=== PATIENT | male | born 1955 | race Caucasian/White ===

== ENCOUNTER 2020-01-27 13:43 | Emergency (ER) | payer SELFPAY ==
[~2020-01-27] VITALS: Ht 172.7 cm; Wt 52.5 kg
--- NOTE | 2020-01-27 14:32 | RAD ---
XR CHEST 1V 01/27/2020 2:26 PM INDICATION: Stage IV lung cancer with right-sided Pleurx catheter COMPARISON: None available TECHNIQUE: Portable frontal view of the chest is provided. Findings/ impression: The cardiomediastinal silhouette is within normal limits. There is volume loss in the right lung. Mul tifocal parenchymal opacities in the right lung may represent either primary or metastatic malignancy . There are no significant pleural effusions. There is no pulmonary vascular congestion. No pneumothora x. No suspicious osseous abnormality. Electronically signed by: Radha Murphy MD (01/27/2020 2:29 PM) [id number]
--- NOTE | 2020-01-27 14:50 | PHYS DOC ---
Past History Past Medical History: Cancer, COPD, Hypertension, Other Additional Past Medical Histor: PLEURAL EFFUSION Past Surgical History: Other Additional Past Surgical Histo: TUBE FOR PLEURAL EFFUSION Alcohol Use: None Adult General Chief Complaint Chief Complaint: OTHER COMPLAINTS HPI HPI Patient is a 64-year-old male who presents for right sided chest tube problems. Patient has known history of stage IV lung cancer. Recently relocated from [place] to our area to live with friend/family member that can assist him with his activities of daily living. He has significant history for cancer with mets, has had progressive decline in ability to perform activities of daily living. He subsequently has an unknown type of lung cancer on the right side, has Pleurx catheter in place and had home health services come to his home in [place] weekly to drain said catheter. Nonetheless, since moving here approximately 3 weeks ago he has not had this service set up. He is here today for drainage of his catheter. Of note, patient attempted to establish with [facility] oncology group; however, he was unable to perform MRI and other studies requested due to not having his insurance set up. Today he complains of no fever, no acute complaints Review of Systems Review of Systems Fourteen body systems of review of systems have been reviewed. See HPI for pertinent positives and negative responses, other renae all other systems are negative, non-pertinent or non-contributory Physical Exam Physical Exam Constitutional: Pt is oriented to person, place, and time. Pt appears malnourished and cachectic appearing HEENT: Head: Normocephalic and atraumatic. External ears unremarkable Conjunctivae and EOM are normal. Pupils are equal, round, and reactive to light. Oropharynx is clear and moist. No hematomas or lacerations or abrasions to face or scalp OP clear, no blood, no malocclusion, dentition intact Nares clear, no nasal septal hematoma Midface stable Neck: C-spine midline nontender, no step-offs Cardiovascular: Normal rate, regular rhythm and normal heart sounds. Pulmonary/Chest: Decreased breath sounds to right lung base, Pleurx catheter in place at right chest wall without any obvious signs of superficial infection, no respiratory distress. No wheezes. Abdominal: Soft. Bowel sounds are normal. Pt exhibits no distension. There is no tenderness. Musculoskeletal: No bony tenderness to extremities, no deformities, full ROM extremities Chest wall stable Pelvis stable and non-tender No vertebral TTP and spine without stepoffs Neurological: Pt is alert and oriented to person, place, and time. Moving all extremities willfully, able to wiggle all fingers and toes Alert and oriented x 3 Sensation grossly intact Muscle strength 4/5 in all extremities which is at baseline for patient Skin: Skin is warm and dry. No abrasions, no lacerations. Numerous lacerations and ecchymosis from bruising per patient on upper bodies from prior falls and recent laboratory sticks Psychiatric: Depressed mood Current Patient Data Vital Signs Vital Signs Date Time Temp Pulse Resp B/P (MAP) Pulse Ox O2 Delivery O2 Flow Rate FiO2 01/27/20 14:25 98 20 125/56 (79) 95 Room Air 01/27/20 13:56 98.1 EKG EKG [] Radiology/Procedures Radiology/Procedures XR CHEST 1V 01/27/2020 2:26 PM INDICATION: Stage IV lung cancer with right-sided Pleurx catheter COMPARISON: None available TECHNIQUE: Portable frontal view of the chest is provided. Findings/ impression: The cardiomediastinal silhouette is within normal limits. There is volume loss in the right lung. Multifocal parenchymal opacities in the right lung may represent either primary or metastatic malignancy. There are no significant pleural effusions. There is no pulmonary vascular congestion. No pneumothorax. No suspicious osseous abnormality. Electronically signed by: Radha Murphy MD (01/27/2020 2:29 PM) [id number] Heart Score HEART Score for Chest Pain: HEART Score for Chest Pain Response (Comments) Value History Slighlty/Non-Suspicious 0 Age > 65 2 Risk Factors >3 Risk Factors or Hx CAD 2 Total 4 Risk Factors: Risk Factors: DM, Current or recent (<one month) smoker, HTN, HLP, family history of CAD, obesity. Risk Scores: Risk Factors: DM, Current or recent (<one month) smoker, HTN, HLP, family history of CAD, obesity. Course & Med Decision Making Course & Med Decision Making Pertinent Labs and Imaging studies reviewed. (See chart for details) Discussed with patient and family member present no acute findings today. No clinical indication for attaching Pleurx catheter to suction today Patient getting reincorporated into local health system. Patient has good access to primary care physician and still getting set up with local oncology group I offered patient admission but he declined, states he has good support at home and care from caregiver who accompanies him today Discussed with the patient all findings and diagnostic testing as well as the need to follow up with PCP for further evaluation and treatment or return to the ED if any new or worsening symptoms. Strict return precautions were also discussed at length with good understanding by patient. Patient voiced understanding and agreement with the plan. Hemodynamically stable at time of disposition. Dragon Disclaimer Dragon Disclaimer This electronic medical record was generated, in whole or in part, using a voice recognition dictation system. Departure Departure: Impression: Primary Impression: Stage 4 malignant neoplasm of lung Disposition: DC HOME SELF CARE/HOMELESS Condition: STABLE Referrals: JAZMÍN ESCOBAR (PCP) Additional Instructions: You were seen in the Emergency Department for evaluation of your Pleurx drain. Your chest x-ray was negative for any acute cardiac/pulmonary etiology requiring immediate intervention. As discussed, I reviewed your case with on-call radiologist and catheter was in correct position, no significant fluid buildup, no need for any intervention at this time. With that said, I did disclose there is obvious findings of known lung cancer and right lower lobe. It is imperative that you follow-up with your primary doctor in addition to oncologist for further evaluation and management. Coughing up blood, fever, and shortness of breath are examples of reasons to come back to the emergency department. Please return to the ED if you have new or worrisome symptoms. CLARISA FREEMAN DO Jan 27, 2020 14:50
[2020-01-27 14:58] LABS: BASO % 0 % (0-3); EOS # 0.1 x10^3/uL (0.0-0.7); EOS % 2 % (0-3); HEMATOCRIT 46.9 % (39.0-53.0); HEMOGLOBIN 15.3 g/dL (13.0-17.5); LYMPH % 24 % (24-48); MEAN CORPUSCULAR HEMOGLOBIN 32 pg (25-35); MEAN CORPUSCULAR HGB CONC 33 g/dL (31-37); MEAN CORPUSCULAR VOLUME 97 fL (79-100); MONO # 0.5 x10^3/uL (0.0-1.1); MONO % 12 % (0-9); NEUT # 2.5 x10^3uL (1.8-7.7); NEUT % 62 % (31-73); PLATELET COUNT 150 x10^3/uL (140-400); RED BLOOD COUNT 4.84 x10^6/uL (4.30-5.70); RED CELL DISTRIBUTION WIDTH 15.2 % (11.5-14.5); WHITE BLOOD COUNT 4.1 x10^3/uL (4.0-11.0)
[2020-01-27 15:02] LABS: CALCIUM 8.7 mg/dL (8.5-10.1); CREATININE 0.7 mg/dL (0.7-1.3); GFR 113.9; POTASSIUM 3.9 mmol/L (3.5-5.1)
[2020-01-27 15:15] VITALS: BP 103/86
[2020-01-27 15:17] LABS: ALBUMIN 2.9 g/dL (3.4-5.0); ALBUMIN/GLOBULIN RATIO 0.8 (1.0-1.7); TOTAL BILIRUBIN 0.4 mg/dL (0.2-1.0); TOTAL PROTEIN 6.6 g/dL (6.4-8.2)
== END 2020-01-27 15:29 | disposition home or self-care (01) ==
LOC: ER 13:43
DX: C34.31 Malignant neoplasm of lower lobe, right bronchus or lung (principal); J44.9 Chronic obstructive pulmonary disease, unspecified; I10 Essential (primary) hypertension
CPT/HCPCS: 36415; 71045; 80053; 82550; 83880; 84484; 85025; 99284